=== PATIENT | female | born 1950 | race Caucasian/White ===

== ENCOUNTER → 2016-06-02 | Outpatient (CLI) | payer OTHER ==
[~2016-06-02] MED LIST: ACETAMINOPHEN325 M1 PO; ALDACTONE25 MG PO; ASPIRIN EC81 M1 PO; ASTRAGALUS470 MG; BILBERRY1 EAC1 PO; CALCIUM CARBO1000 MG PO; CARVEDILOL3.125 MG PO; COREG3.125 MG PO; COREG6.25 MG PO; COUMADIN 4 MG TA4 M1; DEMADEX20 MG PO; DIABETA 2.5MG2.5 MG PO; DIABETA 5MG TABL5 MG PO; FERRO-TIME325 MG PO; FLAX OIL1000 MG PO; FLAX SEED OIL1000 MG PO; FUROSEMIDE 40 M40 M1 PO; GLUCOPHAGE XR500 MG PO; GLUCOPHAGE1000 MG PO; GLUMETZA500 PO; GLYCOLAX POWDER17 G1 PO; INVOKANA100 MG PO; K-DUR 20 MEQ T20 MEQ PO; KLOR-CON 1010 MEQ PO; LEVEMIR SUBQ; LIPITOR 20 MG T20 M1 PO; LIPITOR20 MG PO; LIPITOR40 MG PO; LIPITOR80 MG PO; LISINOPRIL5 MG PO; METOLAZONE 2.52.5 M1 PO; METOLAZONE 5 MG5 M1 PO; METOLAZONE 5 MG5 MG PO; MOM PO; NITROGLYCERIN0.4 MG SUBLING; NORCO PO; PACERONE 200 M200 M1 PO; PERCOCET 5-3251 EACH PO; SENOKOT-S1 TA1 PO; TORSEMIDE20 MG PO; VITAMIN D-32000 UNIT PO; VITAMIN D1000 UNI1 PO; VITAMIN D35000 UNI1 PO; VITAMIN E400 UNI4 PO; WARFARIN; ZESTRIL5 MG PO; ZOFRAN 4 MG ORAL4 MG PO; [UNRECOGNIZED DRUG - OTHER] PO
== END ==
LOC: RAD 12:54
DX: J18.9 Pneumonia, unspecified organism (principal); I51.7 Cardiomegaly; J84.10 Pulmonary fibrosis, unspecified

== ENCOUNTER → 2017-06-15 | Outpatient (CLI) | payer OTHER | LOC: NUC 07:53 | DX: I25.10 Atherosclerotic heart disease of native coronary artery without angina pectoris (principal); E78.5 Hyperlipidemia, unspecified; I10 Essential (primary) hypertension; E11.9 Type 2 diabetes mellitus without complications; Z79.4 Long term (current) use of insulin; Z88.8 Allergy status to other drugs, medicaments and biological substances; Z82.49 Family history of ischemic heart disease and other diseases of the circulatory system ==

== ENCOUNTER 2018-03-20 23:23 | Inpatient (IN) | payer OTHER ==
[~2018-03-20] VITALS: Ht 160 cm; Wt 91.6 kg
[2018-03-20 23:30] VITALS: BP 134/80
[2018-03-21] LABS: ABSOLUTE NEUTROPHILS 4.2 thou/uL (1.4-8.2); BASOPHILS 1.4 % (0.0-2.0); EOSINOPHILS 3.2 % (0.0-3.0); HEMATOCRIT 38.7 % (37.0-47.0); HEMOGLOBIN 13.3 gm/dL (12.0-15.0); LYMPHOCYTES 27.3 % (24.0-44.0); MCH 29.3 pg (26.0-34.0); MCHC 34.4 g/dL (28.0-37.0); MCV 85.1 fL (80.0-100.0); MONOCYTES 8.7 % (1.0-8.0); PLATELET COUNT 324 thou/uL (150-400); POLYS 59.4 % (36.0-66.0); RBC 4.55 mil/uL (4.20-5.00); RDW 13.6 % (10.5-14.5); WBC 7.1 thou/uL (4.0-11.0)
[2018-03-21 00:09] LABS: ANION GAP 10 mmol/L (7-16); BUN 40 mg/dL (7-18); CALCIUM 9.7 mg/dL (8.5-10.1); CHLORIDE 89 mmol/L (98-107); CO2 32 mmol/L (21-32); CREATININE 1.8 mg/dL (0.6-1.0); GLUCOSE 313 mg/dL (74-106); SODIUM 131 mmol/L (136-145)
[2018-03-21 00:13] LABS: ALBUMIN 3.5 g/dL (3.4-5.0); MAGNESIUM 2.3 mg/dL (1.8-2.4)
[2018-03-21 00:15] LABS: POTASSIUM 2.7 mmol/L (3.5-5.1)
[2018-03-21 00:35] LABS: SGOT 9 U/L (15-37); SGPT 14 U/L (30-65); TOTAL BILIRUBIN 0.5 mg/dL (<0.1-1.0); TOTAL PROTEIN 8.3 g/dL (6.4-8.2); TROPONIN-I <0.06 ng/mL (<0.06)
[2018-03-21] MEDS ORDERED: JARDIANCE10 MG PO (01:06)
[2018-03-21 01:28] VITALS: BP 113/73
[2018-03-21 01:55] VITALS: BP 131/86
--- NOTE | 2018-03-21 03:51 | NUR ---
ASSUMED CARE OF PATIENT FROM ER. ADMISSION COMPLETE. STATES PAIN IS MUCH BETTER. HEART RATE ON ADMISSION WAS 130, UP FROM WHEELCHAIR TO BED AND AFTER 5 MINUTES WAS BACK TO BASELINE OF 57 WHICH IS WHAT SHE SAYS IS HER NORMAL HEART RATE. NO S/S OF DISTRESS. POC GOALS ESTABLISHED.
[2018-03-21 08:20] VITALS: BP 136/78
--- NOTE | 2018-03-21 10:59 | EKG ---
[place] [address] [facility] [place] [address] ELECTROCARDIOGRAM REPORT Name: JULIANNABLAKE ALEXISARET Room #: 356-P ADM IN M.R.#: [id number] Admission: 03/21/18 Attend Phys: Deepak Servin MD Discharge: Date of : 46 Report #: [id number] THIS REPORT FOR: //name// [facility] ED Test Date: 2018-03-20 Test Time: 23:37:25 Pat Name: BLAKE LEVINE Department: Room: 356 Gender: F Dynamics Ax Solution Architect: [email or web address] : 1950 Requested By: Douglas Schwartz Order Number: [id number] MD: Crow Ravi Measurements Intervals [place] Rate: 132 P: 0 OR: 96 QRS: -96 QRSD: 156 T: 72 QT: 376 QTc: 557 Interpretive Statements Atrial fibrillation RBBB and LAFB ST depr, consider ischemia, anterolateral lds Compared to ECG 05/08/2015 07:51:44 Sinus rhythm no longer present Atrial abnormality no longer present T-wave abnormality no longer present Possible ischemia still present Electronically Signed On 03-21-2018 10:59:39 BUSINESS ANALYTICS MANAGER by Crow Ravi [email or web address] <ELECTRONICALLY SIGNED> By: Crow Ravi MD 03/21/18 1059 2337 2337 Crow Ravi MD /EPI
[2018-03-21 11:17] VITALS: BP 112/67
[2018-03-21 14:19] LABS: CALCIUM 9.2 mg/dL (8.5-10.1); CREATININE 1.6 mg/dL (0.6-1.0); POTASSIUM 3.3 mmol/L (3.5-5.1)
[2018-03-21 15:35] VITALS: BP 124/63
[2018-03-21 18:00] VITALS: BP 124/63
--- NOTE | 2018-03-21 18:11 | NUR ---
care of pt assumed this am @ 0700. pt soft spoken and kind. pt saw dr. hickman this am and thought that she may be visited by a beer coil cleaner later today, but dr. hickman did not consult cardiology. pt w/o co palpitations, no soa and no n/v/d today. pt w/ a good appetite for food and fluid. pt co of neck discomfort, medicated w/ tylenol w/ minimal or moderate relief. pt visited by her for most of the day. pt iv access dc'd before dinner. tele dc'd also. pt states she is happy to be going home tonight and has an appt w/ dr. hickman already sceduled for tomorrow. pt scripts written for per dr. hickman.
== END 2018-03-21 18:25 | disposition home or self-care (01) | DRG 641 ==
LOC: ER 23:23 → EROBS 03-21 00:56 → 3W 03-21 01:46
PROVIDERS: Emergency Medicine; ADMIT Family Medicine
DX: E87.6 Hypokalemia (principal); R51 Headache; I50.9 Heart failure, unspecified; R00.0 Tachycardia, unspecified; G62.9 Polyneuropathy, unspecified; I25.10 Atherosclerotic heart disease of native coronary artery without angina pectoris; E78.5 Hyperlipidemia, unspecified; H35.00 Unspecified background retinopathy; I11.0 Hypertensive heart disease with heart failure; Z95.1 Presence of aortocoronary bypass graft; Z98.49 Cataract extraction status, unspecified eye; Z79.899 Other long term (current) drug therapy
CPT/HCPCS: 10879

== ENCOUNTER → 2018-11-18 | Outpatient (CLI) | payer OTHER ==
[~2018-11-18] MED LIST changes: +JARDIANCE10 MG PO
--- NOTE | 2018-11-18 11:14 | 2DMMODE ---
[facility] [employer] [place] [address] 2 D/M-MODE ECHOCARDIOGRAM Name: JULIANNABLAKESTEPHEN JUAN Room #: REG [facility]#: [id number] Admission: 11/18/18 Attend Phys: Crow Ravi MD Discharge: Date of : 46 Report #: [id number] THIS REPORT FOR: //name// APPROVED REPORT Study performed: 11/18/2018 10:00:53 EXAM: Comprehensive 2D, Doppler, and color-flow Echocardiogram Patient Location: Out-Patient Status: routine BSA: 1.91 HR: 63 bpm BP: 136/70 mmHg Rhythm: NSR Other Information Study Quality: Good Indications CAD Cardiomyopathy Hx: CABG, HTN, HLP, DM. 2D Dimensions RVDd: 43.27 mm IVSd: 11.48 (7-11mm) LVOT Diam: 20.18 (18-24mm) LVDd: 57.09 mm PWd: 8.38 (7-11mm) Ascending Ao: 32.87 (22-36mm) LVDs: 45.37 (25-40mm) Aortic Root: 29.29 mm Volumes Left Atrial Volume (Systole) Single Plane 4CH: 92.92 mL Single Plane 2CH: 96.70 mL LA ESV Index: 52.00 mL/m2 Aortic Valve AoV Peak Tay.: 2.50 m/s AO Peak Gr.: 25.04 mmHg LVOT Max P.33 mmHg AO Mean Gr.: 17.06 mmHg AO V2 Mean: 2.01 m/s LVOT Max V: 0.91 m/s AO V2 VTI: 66.82 cm SHEMAR Vmax: 1.17 cm2 [facility] [address] [place] [address] 2 D/M-MODE ECHOCARDIOGRAM Name: JULIANNABLAKESTEPHEN JUAN Room #: REG [facility]#: [id number] Admission: 11/18/18 Attend Phys: Crow Ravi MD Discharge: Date of : 46 Report #: [id number] Mitral Valve E/A Ratio: 1.4 MV Decel. Time: 247.13 ms MV E Max Tay.: 1.71 m/s MV A Tay.: 1.26 m/s MV PHT: 71.67 ms MVA (PHT): 3.16 cm2 IVRT: 73.82 ms Pulmonary Valve PV Peak Tay.: 1.17 m/s PV Peak Gr.: 5.50 mmHg Pulmonary Vein P Vein S: 0.33 m/s P Vein D: 0.39 m/s P Vein S/D Ratio: 0.85 Tricuspid Valve TR Peak Tay.: 3.41 m/s RAP Estimate: 5.00 mmHg TR Peak Gr.: 47.00 mmHg PA Pressure: 52.00 mmHg Left Ventricle The left ventricle is normal size. Mild septal hypertrophy is present. Left ventricular systolic function is normal. LVEF is 50-55%. Grade II - pseudonormal filling dynamics. Right Ventricle The right ventricle is normal size. The right ventricular systolic function is normal. Atria Left atrium is severely dilated. Right atrium is at the upper limits of normal. Aortic Valve Aortic valve is moderately calcified. No aortic regurgitation is present. There is moderate valvular aortic stenosis. Calculated aortic valve area is 1.2 cm2 with maximum pressure gradient of 25 mmHg and mean pressure gradient of 17 mmHg. Mitral Valve Heavily calcified annulus. Moderate mitral regurgitation. Borderline mild mitral stenosis. Mean pressure gradient of 4mmHg Tricuspid Valve [facility] [address] [place] [address] 2 D/M-MODE ECHOCARDIOGRAM Name: BLAKE LEVINE Room #: REG [facility]#: [id number] Admission: 11/18/18 Attend Phys: Crow Ravi MD Discharge: Date of : 46 Report #: [id number] The tricuspid valve is normal in structure. Mild tricuspid regurgitation. Estimated PAP is 50-55mmHg. Pulmonic Valve The pulmonary valve is normal in structure. Trace pulmonic regurgitation. Great Vessels The aortic root is normal in size. The ascending aorta is normal in size. IVC is normal in size and collapses >50% with inspiration. Pericardium There is no pericardial effusion. <Conclusion> The left ventricle is normal size. Left ventricular systolic function is normal. LVEF is 50-55%. Grade II - pseudonormal filling dynamics. The right ventricle is normal size. Left atrium is severely dilated. There is moderate valvular aortic stenosis. Heavily calcified annulus. Moderate mitral regurgitation. Mild tricuspid regurgitation. Estimated PAP is 50-55mmHg. <ELECTRONICALLY SIGNED> By: Crow Ravi MD 11/18/18 1114 1114 111 Crow Ravi MD /INF
== END ==
LOC: CV 09:38
DX: I08.1 Rheumatic disorders of both mitral and tricuspid valves (principal); I25.10 Atherosclerotic heart disease of native coronary artery without angina pectoris; I10 Essential (primary) hypertension; E78.5 Hyperlipidemia, unspecified; E11.9 Type 2 diabetes mellitus without complications

== ENCOUNTER → 2019-10-31 | Outpatient (CLI) | payer OTHER | LOC: SJCVC 16:34 | PROVIDERS: ATTEND Internal Medicine Cardiovascular Disease | DX: R94.31 Abnormal electrocardiogram [ECG] [EKG] (principal); I45.2 Bifascicular block; I10 Essential (primary) hypertension; I25.10 Atherosclerotic heart disease of native coronary artery without angina pectoris; E78.00 Pure hypercholesterolemia, unspecified; R60.9 Edema, unspecified ==

== ENCOUNTER 2019-12-11 11:46 | Inpatient (IN) | payer OTHER ==
[~2019-12-11] VITALS: Ht 152.4 cm; Wt 99.5 kg
[2019-12-11 11:55] VITALS: BP 149/59
[2019-12-11 13:18] LABS: ABSOLUTE NEUTROPHILS 4.5 thou/uL (1.4-8.2); BASOPHILS 0.5 % (0.0-2.0); HEMATOCRIT 33.7 % (37.0-47.0); HEMOGLOBIN 11.1 gm/dL (12.0-15.0); MCHC 32.8 g/dL (28.0-37.0); MCV 88.3 fL (80.0-100.0); MONOCYTES 8.5 % (1.0-8.0); PLATELET COUNT 216 thou/uL (150-400); RBC 3.82 mil/uL (4.20-5.00); RDW 14.7 % (10.5-14.5); WBC 5.6 thou/uL (4.0-11.0)
[2019-12-11 13:33] LABS: CALCIUM 8.1 mg/dL (8.5-10.1); CREATININE 1.4 mg/dL (0.6-1.0); POTASSIUM 4.3 mmol/L (3.5-5.1)
[2019-12-11 13:41] LABS: ALBUMIN 3.4 g/dL (3.4-5.0); TOTAL BILIRUBIN 0.4 mg/dL (0.2-1.0); TOTAL PROTEIN 7.3 g/dL (6.4-8.2)
--- NOTE | 2019-12-11 16:05 | NUR ---
PT PULLED OFF MONITOR AND IV WANTING TO LEAVE AMA. DR PUENTE CONVINCED HER TO STAY. PT KEEPS PULLING MONITOR OFF.
[2019-12-11 16:30] LABS: INR 1.1; PROTIME 11.1 Seconds (9.3-11.4)
[2019-12-11 23:41] VITALS: BP 117/49
[2019-12-12] VITALS (9 sets, daily range): BP systolic 114–143; BP diastolic 49–76
[2019-12-12 07:01] LABS: ABSOLUTE NEUTROPHILS 2.3 thou/uL (1.4-8.2); BASOPHILS 0.3 % (0.0-2.0); HEMATOCRIT 35.6 % (37.0-47.0); HEMOGLOBIN 11.5 gm/dL (12.0-15.0); LYMPHOCYTES 19.3 % (24.0-44.0); MCH 28.5 pg (26.0-34.0); MCHC 32.2 g/dL (28.0-37.0); MCV 88.5 fL (80.0-100.0); MONOCYTES 9.7 % (1.0-8.0); PLATELET COUNT 206 thou/uL (150-400); POLYS 70.7 % (36.0-66.0); RBC 4.02 mil/uL (4.20-5.00); RDW 14.6 % (10.5-14.5); WBC 3.3 thou/uL (4.0-11.0)
[2019-12-12 07:06] LABS: GLYCOHEMOGLOBIN (HGB A1C) 6.5 % (4.8-5.6)
[2019-12-12 07:24] LABS: ALBUMIN 3.1 g/dL (3.4-5.0); CALCIUM 8.2 mg/dL (8.5-10.1); CREATININE 1.3 mg/dL (0.6-1.0); MAGNESIUM 2.2 mg/dL (1.8-2.4); PHOSPHORUS 4.3 mg/dL (2.5-4.9); POTASSIUM 4.1 mmol/L (3.5-5.1); TOTAL BILIRUBIN 0.2 mg/dL (0.2-1.0); TOTAL PROTEIN 7.3 g/dL (6.4-8.2)
--- NOTE | 2019-12-12 08:08 | NUR ---
ADMIT PT ADMITTED FROM ED FOR PNEUMONIA. ADMISSION COMPLETED.
--- NOTE | 2019-12-12 16:17 | NUR ---
ASSESSMENT: CM REVIEWED CHART AND SPOKE WITH PATIENT. PT IS CURRENTLY IN ENHANCED ISOLATION DUE TO TESTING POSITIVE FOR COVID 19. PT REPORTS LIVING IN A HOUSE WITH HER WHO IS BLIND. PT REPORTS THAT SHE HAS ABOUT 15-20 STEPS WITH HANDRAILS TO ENTER THE HOME FROM THE FRONT BUT STATES THEY NORMALLY DRIVE UP TO THE BACK WHERE SHE THEN ONLY HAS 2 STEPS WITH HANDRAILS TO ENTER. PT REPORTS ALL HER NEEDS ARE THEN ON THE MAIN LEVEL AND NO STEPS SHE HAS TO USE. PT REPORTS SHE HAS A CANE AT HOME SHE USES AT TIMES AND ALSO HAS A MOTORIZED SCOOTER. PT REPORTS THAT SHE HAS HAD [facility] IN THE PAST AFTER A SURGERY BUT HAS NEVER BEEN TO A SNF. PT IS CURRENTLY ON 2L OF OXYGEN BUT REPORTS SHE DOES NOT HAVE OXYGEN ARRANGED AT HOME. PT REPORTS HAVING OXYGEN IN THE PAST BUT CANNOT RECALL THE AGENCY. CM DISCUSSED ROLE. PT IS HOPEFUL SHE WILL BE ABLE TO GET OFF THE OXYGEN AND DOES NOT FEEL SHE WILL NEED HH AT DISCHARGE. DR HOLCOMB IS PATIENT PCP. CM WILL CONTINUE TO FOLLOW TO ASSIST NEEDED. PT IS CONTINUING ON REMDESIVIR AT THIS TIME.
--- NOTE | 2019-12-12 18:13 | NUR ---
ASSUMED PATIENT CARE THIS AM AT APPROXIMATELY 0700. PATIENT IS AWAKE ALERT ORIENTED. APPEARS TO BE IN NO ACUTE DISTRESS. O2 SAT STABLE ON 2LNC. PATIENT DOES GET SOB WITH MINIMAL EXERTION. ENCOURAGED OOB TO CHAIR WITH MEALS THIS SHIFT. PATIENT TOLERATING DIET WELL. STANDYBY ASSIST TO BSC FOR URINE/STOOLS. PATIENT MEDS AND ASSESSMENTS CHARTED.
[2019-12-13] VITALS (11 sets, daily range): BP systolic 94–135; BP diastolic 57–87
[2019-12-13 06:08] LABS: ABSOLUTE NEUTROPHILS 4.6 thou/uL (1.4-8.2); BASOPHILS 0.2 % (0.0-2.0); HEMOGLOBIN 10.9 gm/dL (12.0-15.0); LYMPHOCYTES 12.5 % (24.0-44.0); MCH 28.1 pg (26.0-34.0); MCHC 31.9 g/dL (28.0-37.0); MCV 87.9 fL (80.0-100.0); MONOCYTES 8.8 % (1.0-8.0); PLATELET COUNT 206 thou/uL (150-400); POLYS 78.5 % (36.0-66.0); RBC 3.87 mil/uL (4.20-5.00); RDW 14.7 % (10.5-14.5); WBC 5.9 thou/uL (4.0-11.0)
[2019-12-13 06:21] LABS: FIBRINOGEN 263.1 mg/dL (210-360); INR 1.2; PROTIME 12.5 Seconds (9.3-11.4)
[2019-12-13 06:30] LABS: ALBUMIN 2.9 g/dL (3.4-5.0); CALCIUM 8.5 mg/dL (8.5-10.1); CREATININE 1.4 mg/dL (0.6-1.0); DIRECT BILIRUBIN 0.1 mg/dL (<0.1-0.2); PHOSPHORUS 3.5 mg/dL (2.5-4.9); POTASSIUM 3.6 mmol/L (3.5-5.1); TOTAL BILIRUBIN 0.3 mg/dL (0.2-1.0); TOTAL PROTEIN 6.4 g/dL (6.4-8.2)
--- NOTE | 2019-12-13 07:12 | NUR ---
ASSUMED CARE FROM DAY SHIFT PT UP IN BSC WITH LOOSE STOOL, DENIES PAIN , OR SOA. PT RESTING WELL AT 0230 PT STARTED COUGHING AND HEART RATE INCREASED TO 148 , BP STABLE , PT DENIES PAIN OR SOA. DR SANABRIA CALLED X2 , ORDERS RECIEVED TO GIVE CARDIZEM BOLUS AND START GTT, BP REMAIN STABLE. PLASMA STARTED ODERED TOLERATED WELL. HEART DECREASED TO 90'S . EKG DONE . PT CONINTUE TO REST WITHOUT CHANGES.
--- NOTE | 2019-12-13 07:33 | EKG ---
[facility] [place] [address] ELECTROCARDIOGRAM REPORT Name: BLAKE LEVINE Room #: 358-P ADM IN M.R.#: [id number] Admission: 12/11/19 Attend Phys: Deepak Servin MD Discharge: Date of : 46 Report #: [id number] THIS REPORT FOR: cc: Deepak Servin MD, Neal A. MD Santiago, Patrick MD [facility] ~ THIS REPORT FOR: //name// [facility] Test Date: 2019-12-13 Test Time: 04:04:07 Pat Name: BLAKE LEVINE Department: Room: 358 P Gender: F Clearance Center Manager: [id number] : 1950 Requested By: Deepak Servin Order Number: [id number] MD: Black Schuler Measurements Intervals [place] Rate: 122 P: 115 [place]: 39 QRS: -87 QRSD: 136 T: 93 QT: 355 QTc: 506 Interpretive Statements AFIB Nonspecific IVCD with LAD Posterior infarct, acute ST depression V1-V3, suggest recording posterior leads Compared to ECG 03/20/2018 23:37:25 No significant change Electronically Signed On 12-13-2019 7:33:38 KOSHER DIETARY SERVICE MANAGER by Black Schuler [email or web address] <ELECTRONICALLY SIGNED> By: Black Schuler MD, FACC 12/13/19 0733 3 3 Black Schuler MD, FAC /EPI
--- NOTE | 2019-12-13 08:26 | NUR ---
Assess due to high BMI 42.2=extreme class III obesity. Admit with COVID + dx. hx CABG, DM, CHF. Wt is up 14 lb x 1.5yrs. BG maintained with glipizide and insulin orders. Receives thiamine/zinc/vitamin C/D for COVID protocol. Eating 100% of carb control diet. Low nutrition risk.
--- NOTE | 2019-12-13 09:52 | EKG ---
[facility] [place] [address] ELECTROCARDIOGRAM REPORT Name: BLAKE LEVINE Room #: 358-P ADM IN M.R.#: [id number] Admission: 12/11/19 Attend Phys: Deepak Servin MD Discharge: Date of : 46 Report #: [id number] THIS REPORT FOR: cc: Deepak Servin MD, Neal A. MD Santiago, Patrick MD [facility] ~ THIS REPORT FOR: //name// [facility] Test Date: 2019-12-13 Test Time: 04:09:56 Pat Name: BLAKE LEVINE Department: Room: 358 P Gender: F Sonographer: [email or web address] : 1950 Requested By: Deepak Servin Order Number: [id number] MD: Black Schuler Measurements Intervals [place] Rate: 101 P: CA: QRS: -68 QRSD: 151 T: 101 QT: 403 QTc: 523 Interpretive Statements Atrial fibrillation Right bundle branch block Abnormal T, consider ischemia, lateral leads Compared to ECG 12/13/2019 04:04:07 No significant change Electronically Signed On 12-13-2019 9:52:02 STOCK PITCHER by Black Schuler [email or web address] <ELECTRONICALLY SIGNED> By: Black Schuler MD, FACC 12/13/19 0952 0409 0409 Black Schuler MD, FACC /EPI
--- NOTE | 2019-12-13 09:52 | EKG ---
[facility] [address] ELECTROCARDIOGRAM REPORT Name: BLAKE LEVINE Room #: 358- ADM IN M.R.#: [id number] Admission: 12/11/19 Attend Phys: Deepak Servin MD Discharge: Date of : 46 Report #: [id number] THIS REPORT FOR: cc: Deepak Servin MD, Neal A. MD Santiago, Patrick MD [facility] ~ THIS REPORT FOR: //name// [facility] Test Date: 2019-12-13 Test Time: 04:11:13 Pat Name: BLAKE LEVINE Department: Room: 358 P Gender: F Sales Promotion Manager: [email or web address] : 1950 Requested By: Deepak Servin Order Number: [id number] MD: Black Schuler Measurements Intervals [place] Rate: 90 P: DC: QRS: -68 QRSD: 154 T: 100 QT: 405 QTc: 496 Interpretive Statements Atrial fibrillation Right bundle branch block Abnormal T, consider ischemia, lateral leads Compared to ECG 12/13/2019 04:09:56 No significant changes Electronically Signed On 12-13-2019 9:52:07 TUBER MACHINE OPERATOR by Black Schuler [email or web address] <ELECTRONICALLY SIGNED> By: Black Schuler MD, FACC 12/13/19 0952 0411 0411 Black Schuler MD, FACC /EPI
--- NOTE | 2019-12-13 11:36 | NUR ---
ASSUMED PATIENT CARE THIS AM AT APPROXIMATELY 0700. PATIENT AWAKE ALERT ORIENTED. MEDS AND ASSESSMENTS CHARTED. PATIENT ON CARDIZEM DRIP. TOLERATING WELL. BLOOD PRESSURE SOFT IN 90S ON DRIP AT NOON. CALLED DR. TUBBS TO MAKE AWARE OF BLOOD PRESSURE AND HEART RATE ON GARDIZEM DRIP. STATES TO GIVE A ONE TIME FLUID BOLUS OF 250, AWARE OF BNP 15,000, STATES NOT FROM FLUID OVERLOAD AND OK TO GIVE BOLUS. WILL REASSESS BP AFTER GIVEN, STATES TO DC DRIP IF BLOOD PRSSURE REMAINS SYS 90S.
--- NOTE | 2019-12-13 16:10 | NUR ---
SW reviewed chart and spoke with nursing. Pt remains in Enhanced Isolation due to COVID-19. Pt is afebrile and on 2L of O2. Pt is on IV abx. Pt had convalescent plasma and is completing course of Remdesivir. Pt is on Cardizem gtt. Pt would benefit from therapy evals when able to participate. EL is following to assist as needed with discharge planning.
[2019-12-13 16:22] LABS: URINE BILIRUBIN NEGATIVE (Negative); URINE BLOOD TRACE (Negative); URINE CLARITY CLEAR; URINE COLOR YELLOW; URINE GLUCOSE-RANDOM* 3+ (Negative); URINE KETONES NEGATIVE (Negative); URINE LEUKOCYTES-REFLEX 1+ (Negative); URINE NITRITE-REFLEX NEGATIVE (Negative); URINE PROTEIN (DIPSTICK) 1+ (Negative); URINE SPECIFIC GRAVITY >= 1.030 (1.005-1.035); URINE UROBILINOGEN 0.2 E.U./dl (0.2-1.0)
[2019-12-13 16:29] LABS: HYALINE CASTS 0-3 Few /LPF (None Seen); SQUAMOUS 0-3 Few /LPF (0-3); URINE WBC-REFLEX >25 Many /HPF (0-5)
[2019-12-13 16:30] LABS: BACTERIA-REFLEX >30 Many /HPF (None Seen); CRYSTALS None Seen /LPF (None Seen); URINE RBC 0-2 Rare /HPF (0-2)
[2019-12-13 16:31] LABS: COARSE GRANULAR CASTS 0-3 Few /LPF (None Seen)
[2019-12-14] VITALS (7 sets, daily range): BP systolic 92–125; BP diastolic 58–77
[2019-12-14 06:37] LABS: DIRECT BILIRUBIN 0.1 mg/dL (<0.1-0.2); TOTAL BILIRUBIN 0.3 mg/dL (0.2-1.0); TOTAL PROTEIN 6.1 g/dL (6.4-8.2)
--- NOTE | 2019-12-14 07:15 | NUR ---
ASSUMED CARE AT 1900. PT DENIES PAIN. REPORTS SOB W/ ACTIVITY, LUNGS VERY COARSE W/ CRACKLES; DESATS EASILY W/ ACTIVITY AND TAKES >5 MINUTES TO RECOVER; AFTER GETTING UP TO TOILET, SAT WAS 85% ON 2L, HAD TO INCREASE O2 TO 4.5L FOR SAT TO BE 90%. ONE TIME DOSE LASIX GIVEN. CARDIZEM DRIP INFUSING AT 5 MG/HR OVERNIGHT, INCREASED TO 10 MG/HR THIS AM HR WAS TRENDING INTO 120'S. NO OTHER CONCERNS, SHIFT REPORT GIVEN 0700.
--- NOTE | 2019-12-14 15:49 | NUR ---
SW reviewed chart. Pt remains in Enhanced Isolation due to COVID-19. Pt is afebrile and is on 13L of O2. Pt is on IV abx, IV lasix and IV steroids. Pt is on cardizem gtt. Pt s completing course of Remdesivir. Pt will need therapy evals when able to participate. EL is following to assist as needed with discharge planning.
--- NOTE | 2019-12-14 18:33 | NUR ---
RN ASSUMED PT'S CARE AT 0700AM , PT IS A&OX3, RN HAS CALLED DR TO REPORT PT'S O2 INCEASE TO O2 15L/MIN/NC TO KEEP O2SAT 92-98% WITH PT'S ACTIVITIES, RN MONITORS CLOSELY PT'S O2SAT WITH ACTIVITIES, TIRATE PT'S O2 TO 8L/MIN/NC BY 1800PM, PT GETS UP TO CHAIR AND WALK IN HER ROOM, PT IS ON ISOLATION FOR POSITIVE COVID.
--- NOTE | 2019-12-14 19:25 | NUR ---
PT'S IV DILTIAZEM HAS DC AT 1000AM PER ORDER, AFTER THEN , PT'S HR KEEPS AT 80-110ML/HR, PT DENIES CHEAT PAIN AND DIZZINESS .
--- NOTE | 2019-12-14 23:17 | NUR ---
ASSUMED CARE AT 1900. PT UP WALKING AROUND AND TALKING ON PHONE, O2 SAT 85%. ENCOURAGED PT TO REST MORE, INCREASED O2 FROM 10L TO 13L, SAT ANGÉLICA ABOVE 91%. IV ABX STARTED. BP 124/60, HR 110, GAVE FIRST DOSE PO ATENOLOL; RECHECK VS AT 2315 BP 92/62 AND HR 94, PT DIAPHORETIC AND C/O WORSENING SOB, NEEDING TO SIT ON SIDE OF BED TO BREATHE BETTER. O2 SAT AT 91%, INCREASED PT 15L WHICH BROUGHT SAT UP TO 97%. PAGE SENT TO DR. MENDEZ. WILL CONTINUE TO MONITOR.
[2019-12-15 05:43] VITALS: BP 113/57
[2019-12-15 06:26] LABS: ALBUMIN 2.7 g/dL (3.4-5.0); CALCIUM 8.3 mg/dL (8.5-10.1); CREATININE 1.4 mg/dL (0.6-1.0); DIRECT BILIRUBIN 0.1 mg/dL (<0.1-0.2); TOTAL BILIRUBIN 0.4 mg/dL (0.2-1.0); TOTAL PROTEIN 6.2 g/dL (6.4-8.2)
[2019-12-15 07:16] VITALS: BP 115/66
[2019-12-15 08:06] LABS: BE(vivo) -3.3 mmol/L (-2 to +3); HCO3 20.4 mmol/L (22.0-26.0); PCO2 32.2 mmHg (35.0-45.0); PO2 132.8 mmHg (80.0-100.0); sO2 98.7 % (92.0-98.0)
[2019-12-15 11:20] VITALS: BP 131/67
[2019-12-15 15:47] VITALS: BP 147/85
--- NOTE | 2019-12-15 15:57 | NUR ---
SW reviewed chart and spoke with nursing. Pt remains in Enhanced Isolation due to COVID-19. Pt is afebrile and on 15L O2 with NRB mask. Pt is on IV lasix, IV abx and IV steroids. Pt to finish course of Remdesivir today. Will need therapy evals when pt is able to participate. EL is following to assist as needed with discharge planning.
--- NOTE | 2019-12-15 16:29 | NUR ---
cm received phone call from naya lam sister in law [phone]. naya provied the sec code. she wanting help with alisia is blind, his work wants him tested for covid, he went to [facility] and they have lost his test. Cm education to have him call his pcp to have them help and if his work is wanting it, then they should set it up. thank you for calling me back per naya. alisia is covid +.
--- NOTE | 2019-12-15 16:42 | NUR ---
RN ASSUMED PT'S CARE AT 0700AM, PT IS A&OX3, PT HAS DESAT WITH ACITIVITIES, PT STARTS NON-REBREATHER FACE MASK O2 15L/MIN/NC TO KEEP O2SAT 95-98 %, RN HAS REPORTED DR ABOUT ABNORMAL ABG RESULTS, NEW ORDER RECEIVED, PT'S VS ARE STABLE, PT GETS UP TO CHAIR, PT DENIES PAIN .PT IS ISOLATION FOR POSITIVE COVID.
[2019-12-15 18:49] VITALS: BP 121/62
[2019-12-16] VITALS (7 sets, daily range): BP systolic 99–127; BP diastolic 51–86
--- NOTE | 2019-12-16 03:30 | NUR ---
PATIENT ABLE TO TRANSFER FROM BED TO CHAIR TO BED WITH MINIMAL ASSIST WITH NRB O2 IN PLACE. COMMUNICATING WITH USING CELL PHONE. PLEASANT. HS BLOOD SUGAR WAS 140. CONTINUOUS PULSE OX CONSISTINTLEY IN THE 90s
[2019-12-16 07:18] LABS: CALCIUM 8.4 mg/dL (8.5-10.1); CREATININE 1.5 mg/dL (0.6-1.0)
--- NOTE | 2019-12-16 14:30 | NUR ---
SW reviewed chart and spoke with nursing. Pt remains in Enhanced Isolation due to COVID-19. Pt is afebrile and requiring 15L NRB mask. Pt is on IV lasix, IV steroids and IV abx. Pt completed course of Remdesivir. Pt may need bipap support or optiflow. No weekend discharge planned. EL is following to assist as needed with discharge planning.
--- NOTE | 2019-12-16 14:31 | NUR ---
PATIENT CONT ON NON REBREATHER. OXYGEN NEEDS STEADY AT THIS TIME. WILL BE MOVED TO NEW ROOM FOR POSSIBLE USE OF BIPAP. SHE TRANSFERS WITH MINIMAL ASSIST. WILL CONT WITH PLAN OF CARE.
--- NOTE | 2019-12-17 04:22 | NUR ---
ASSUMED PT CARE AROUND 1900. A&OX4; CAN BE FORGETFUL AT TIMES. C/O BACK PAIN FROM LAYING IN THE BED. TYLENOL GIVEN. PT THEN REQUESTED TO SLEEP IN THE CHAIR. SHE HAS BEEN SLEEPING IN THE CHAIR MOST OF THE NIGHT. PT REMAINS ON OPTIFLOW FOR OXYGEN SUPPLEMENTATION. VSS. AFEBRILE. NOT PROGRESSING WELL TOWARD POC GOALS DUE TO INCREASED O2 NEEDS OVER THE PAST FEW DAYS. WILL CONTINUE TO MONITOR CLOSELY.
[2019-12-17 04:47] LABS: BE(vivo) -4.9 mmol/L (-2 to +3); PCO2 27.6 mmHg (35.0-45.0); pH 7.433 (7.360-7.450); sO2 96.1 % (92.0-98.0)
[2019-12-17 05:01] VITALS: BP 104/69
[2019-12-17 05:37] LABS: ABSOLUTE NEUTROPHILS 7.9 thou/uL (1.4-8.2); BASOPHILS 0.2 % (0.0-2.0); HEMATOCRIT 34.1 % (37.0-47.0); HEMOGLOBIN 11.2 gm/dL (12.0-15.0); LYMPHOCYTES 5.6 % (24.0-44.0); MCH 28.3 pg (26.0-34.0); MCHC 32.9 g/dL (28.0-37.0); MCV 86.1 fL (80.0-100.0); MONOCYTES 2.7 % (1.0-8.0); PLATELET COUNT 239 thou/uL (150-400); POLYS 91.5 % (36.0-66.0); RBC 3.96 mil/uL (4.20-5.00); RDW 14.8 % (10.5-14.5); WBC 8.6 thou/uL (4.0-11.0)
[2019-12-17 05:52] LABS: ALBUMIN 2.9 g/dL (3.4-5.0); CALCIUM 8.7 mg/dL (8.5-10.1); CREATININE 1.5 mg/dL (0.6-1.0); POTASSIUM 4.3 mmol/L (3.5-5.1); TOTAL BILIRUBIN 0.5 mg/dL (0.2-1.0); TOTAL PROTEIN 6.5 g/dL (6.4-8.2)
--- NOTE | 2019-12-17 07:59 | NUR ---
0545 - PT AWAKE, SITTING UP IN CHAIR. REQUESTED A CUP OF COFFEE AND GETTING READY TO ORDER BREAKFAST. AROUND 0630 - PT'S PULSE OXIMETRY WAS ALARMING. THIS RN WENT INTO PT'S ROOM AND FOUND PATIENT UNRESPONSIVE IN THE CHAIR. PT WAS PULSELESS AND NOT BREATHING. ALANNA PRADO CALLED. CPR INITIATED. SEE ALANNA BLUE FLOWSHEET. PT WAS INTUBATED BY DR MENDEZ AND THEN TRANSFERED TO ICU WITH A PULSE. REPORT WAS GIVEN TO HEAD OF CONSERVATION. 07 - THIS RN SPOKE WITH PT'S CHEIKH TO UPDATE HIM ON THE RECENT EVENTS. CHEIKH SAID HE WOULD GET A TAXI CAB TO COME TO THE HOSPITAL. HEAD OF CONSERVATION AND DR SANABRIA UPDATED ON THIS INFORMATION. ALL PT BELONGINGS SENT TO ICU.
== END 2019-12-17 07:48 | DRG 177 ==
LOC: ER 11:46 → EROBS 14:31 → 3W 14:31 → ICU 12-17 07:12
PROVIDERS: Emergency Medicine; Internal Medicine; Internal Medicine Cardiovascular Disease; Pediatrics; Specialist; ADMIT Family Medicine; ATTEND Family Medicine
PROC: XW033E5 Introduction of Remdesivir Anti-infective into Peripheral Vein, Percutaneous Approach, New Technology Group 5 (ICD-10-PCS; principal; 2019-12-11)
PROC: XW13325 Transfusion of Convalescent Plasma (Nonautologous) into Peripheral Vein, Percutaneous Approach, New Technology Group 5 (ICD-10-PCS; 2019-12-13)
PROC: 5A12012 Performance of Cardiac Output, Single, Manual (ICD-10-PCS; 2019-12-17)
PROC: 0BH18EZ Insertion of Endotracheal Airway into Trachea, Via Natural or Artificial Opening Endoscopic (ICD-10-PCS; 2019-12-17)
PROC: 5A19054 Respiratory Ventilation, Single, Nonmechanical (ICD-10-PCS; 2019-12-17)
DX: U07.1 COVID-19 (principal); J96.01 Acute respiratory failure with hypoxia; J12.9 Viral pneumonia, unspecified; I13.0 Hypertensive heart and chronic kidney disease with heart failure and stage 1 through stage 4 chronic kidney disease, or unspecified chronic kidney disease; M31.9 Necrotizing vasculopathy, unspecified; N39.0 Urinary tract infection, site not specified; I50.9 Heart failure, unspecified; I25.10 Atherosclerotic heart disease of native coronary artery without angina pectoris; E78.5 Hyperlipidemia, unspecified; E11.40 Type 2 diabetes mellitus with diabetic neuropathy, unspecified; E11.319 Type 2 diabetes mellitus with unspecified diabetic retinopathy without macular edema; I25.5 Ischemic cardiomyopathy; G47.33 Obstructive sleep apnea (adult) (pediatric); N18.30 Chronic kidney disease, stage 3 unspecified; I46.9 Cardiac arrest, cause unspecified; I48.91 Unspecified atrial fibrillation; Z79.01 Long term (current) use of anticoagulants; Z98.49 Cataract extraction status, unspecified eye; Z95.1 Presence of aortocoronary bypass graft; Z79.82 Long term (current) use of aspirin; Z79.899 Other long term (current) drug therapy
CPT/HCPCS: 10879